=== PATIENT | male | born 1955 | race Two or more races ===

== ENCOUNTER 2021-05-09 16:59 | Inpatient (IN) | payer MEDICAID ==
[~2021-05-09] VITALS: Ht 172.7 cm; Wt 75.3 kg
[2021-05-09] MEDS ORDERED: HYDR-4077 GT (17:20)
[2021-05-09] MEDS ORDERED: AMIN30LI2 GT (17:20)
[2021-05-09] MEDS ORDERED: ACET-2154 GT (17:20)
[2021-05-09] MEDS ORDERED: CLON0.1T GT (17:20)
[2021-05-09] MEDS ORDERED: ATOR10TA GT (17:20)
[2021-05-09] MEDS ORDERED: HYDR-4075 GT (17:20)
[2021-05-09] MEDS ORDERED: GLYC2TAB2 GT (17:20)
[2021-05-09] MEDS ORDERED: DEXT38GE12 PO (17:20)
[2021-05-09] MEDS ORDERED: DIVA125T2 GT (17:20)
[2021-05-09] MEDS ORDERED: ACET-2605 GT (17:20)
[2021-05-09] MEDS ORDERED: INSU100I26 SQ (17:20)
[2021-05-09] MEDS ORDERED: SEVE800T8 GT (17:20)
[2021-05-09 17:39] LABS: CREATININE 2.3 mg/dL (0.6-1.3); HEMATOCRIT 31.5 % (36.7-47.1); MEAN CORPUSCULAR HEMOGLOBIN 27.7 uug (23.8-33.4); MEAN CORPUSCULAR VOLUME 85.2 fL (73.0-96.2); PLATELET COUNT (AUTO) 584 K/uL (152-348); POTASSIUM 4.4 mmol/L (3.5-5.1)
--- NOTE | 2021-05-09 17:39 | NUR ---
pt bib ambulance from [facility], due to out pt dialysis missed today. pt came on vent 12, 500, 40%, peep5. no sign of distress at this time.
--- NOTE | 2021-05-09 18:00 | NUR ---
pt co low abd pain. md notified.
[2021-05-09] MEDS ORDERED: LIDOCAINE 2% (UROJET) 10 ML JELLY MM ONE ×2 (18:29→18:45)
[2021-05-09 18:48] LABS: *BILIRUBIN,URIN NEGATIVE (NEGATIVE); *CLARITY,URINE TURBID (CLEAR); *COLOR,URINE YELLOW (YELLOW); *KETONES,URINE NEGATIVE (NEGATIVE); *UROBILINOGEN,URINE 0.2 E.U./dl (NORMAL); LEUKOCYTE ESTERASE ,URINE 3+ (NEGATIVE); NITRITE, URINE NEGATIVE (NEGATIVE); PH,URINE 5.5 (5.0-8.0); UGLUCOSE NEGATIVE (NEGATIVE)
[2021-05-09 18:59] LABS: *BLOOD, URINE TRACE (NEGATIVE)
[2021-05-09 19:00] LABS: BACTERIA,URINE MANY /HPF (NONE SEEN); SQUAMOUS EPITHELIAL CELL,UR NONE SEEN /HPF (NONE SEEN); WBC,URINE TNTC /HPF (0-3)
--- NOTE | 2021-05-09 19:07 | NUR ---
per day shift nurse Trinh Jimenez accepted to admit this pt to [facility].
--- NOTE | 2021-05-09 19:08 | NUR ---
pt has a trach to vent, per dayshift pt is a chronic vent and chronic hd pt. pt able to mouth words to communicate.
--- NOTE | 2021-05-09 19:27 | NUR ---
pt is having a midline placed.
--- NOTE | 2021-05-09 19:33 | NUR ---
call placed to Trinh Jimenez NP.
--- NOTE | 2021-05-09 19:45 | NUR ---
Trinh Jimenez COMMERCIAL LINES ASSISTANT called back informed her the pt will go to CCU as [facility] status.
--- NOTE | 2021-05-09 19:49 | NUR ---
Wagner VILLALOBOS complted midline to left upper arm.
[2021-05-09] MEDS ORDERED: ONDANSETRON 4 MG/2 ML VIAL IV PRN (20:00)
[2021-05-09] MEDS ORDERED: MAGNESIUM HYDROXIDE 30 ML LIQUID UDC PO PRN (20:00)
[2021-05-09] MEDS ORDERED: ACETAMINOPHEN 325 MG TABLET PO PRN (20:00)
[2021-05-09] MEDS ORDERED: REMEDY ESSENTIAL ZINC PASTE 113 GM TP PRN (20:00)
[2021-05-09] MEDS ORDERED: ACETAMINOPHEN ES 500 MG TABLET- SA PATIENTS-PAIN ONLY GT PRN (20:15)
[2021-05-09] MEDS ORDERED: hydrALAZINE HCL 10 MG TABLET GT PRN (20:15)
--- NOTE | 2021-05-09 20:32 | NUR ---
report given to Asiya in icu pt to go to room 2 in icu, under the care of [facility] status.
[2021-05-09] MEDS: ATORVASTATIN 10 MG TABLET GT SCH (21:00)
[2021-05-09 21:30] VITALS: BP 151/93
--- NOTE | 2021-05-09 21:30 | NUR ---
Received patient from ED via RT georgiana and MD at bedside. Pt. is awake, alert and oriented with no acute distress noted. Trach to vent, setting as follows: AC 12, TV 500, FiO2 40% and PEEP of 5. Oriented pt safely to his bed. SR in the monitor. Vas cath in the left upper chest wall in place. IV on the left upper arm, patent and intact. GTube is clamped and site is C/D/I. Bowel sounds active on all 4 quadrants. Herron is draining yellow cloudy urine with moderate amount of sediments. Skin menard, sacral is intact. However, lower back rash. Right foot and huynh skin abrasion. Safety initiated. Bed in low and locked position. Will continue to monitor.
--- NOTE | 2021-05-09 21:36 | NUR ---
PT TRANSPORTED TO ROOM ICU 2 UNDER [facility] STATUS, RT AND DR. CARDOZO TRANSPORTED PT WITH ALL BELONGINGS. GRISELDA MARTE AT BEDSIDE TO RECEIVE THE PT.
[2021-05-09 22:00] VITALS: BP 154/83
[2021-05-09] MEDS: SEVELAMER CARBONATE 800 MG POWD.PACK GT SCH (22:00)
[2021-05-09] MEDS ORDERED: LORAZEPAM 2 MG/1 ML VIAL IV ONE (22:00)
--- NOTE | 2021-05-09 22:00 | NUR ---
Pt is restless and anxious. Firer Bisque Kiln at bedside. RT at bedside. C/O unable to breath despite being on the vent. Suctioned pt. for secretions. Ativan 1 mg. given. Will continue to monitor.
[2021-05-09 22:30] VITALS: BP 145/73
--- NOTE | 2021-05-09 22:30 | NUR ---
Dr. Moralez at bedside to assess the pt. New orders given. Will continue to monitor.
[2021-05-09] MEDS: CEFTRIAXONE 1 G in IV DEXTROSE 5% 50 ML IV SCH (22:53)
[2021-05-09] MEDS: hydrALAZINE HCL 50 MG TABLET GT SCH (22:54)
[2021-05-09] MEDS: DIVALPROEX SPRINKLE 125 MG CAP.SPRINK PO SCH (22:54)
[2021-05-09] MEDS ORDERED: hydrALAZINE HCL 25 MG TABLET ONE (22:54)
[2021-05-09] MEDS ORDERED: ATORVASTATIN 40 MG TABLET ONE (22:55)
[2021-05-09 22:56] LABS: ABG BASE EXCESS -3.9 mmol/L; ABG HCO3 20.9 mmol/L; ABG PCO2 36.7 mmHg (35.0-45.0); ABG PH 7.373 (7.350-7.450); ABG PO2 128.3 mmHg (75.0-100.0); ABG SITE LEFT RADIAL; ABG TOTAL HEMOGLOBIN 10.7 G/dL (13.5-18.0); COHb 0.3 % (0.5-1.5); MetHb 0.8 % (0.0-1.5); O2Hb 97.6 % (94.0-97.0); VENT MODE VENT - A/C; VT, ABG 500 mL
[2021-05-09] MEDS ORDERED: CEFTRIAXONE /D5W 50ML IVPB **ER PYXIS IV ONE (22:56)
[2021-05-09 23:00] VITALS: BP 131/69
[2021-05-09] MEDS ORDERED: SEVELAMER CARBONATE 800 MG TABLET PO ONE (23:05)
[2021-05-09] MEDS ORDERED: APIXABAN 2.5 MG TABLET ONE (23:06)
[2021-05-10] VITALS (12 sets, daily range): BP systolic 98–148; BP diastolic 55–78
[2021-05-10] MEDS ORDERED: REMEDY ESSENTIAL ZINC PASTE 113 GM TOP PRN (03:45)
[2021-05-10 05:44] LABS: HEMATOCRIT 29.6 % (36.7-47.1); MEAN CORPUSCULAR HEMOGLOBIN 27.5 uug (23.8-33.4); MEAN CORPUSCULAR VOLUME 85.4 fL (73.0-96.2); PLATELET COUNT (AUTO) 494 K/uL (152-348)
[2021-05-10] MEDS: LORAZEPAM 2 MG/1 ML VIAL IV PRN ×3 (06:05→21:59)
--- NOTE | 2021-05-10 06:15 | NUR ---
Restless and agitated. Ativan given. Will continue to monitor.
[2021-05-10 06:32] LABS: CREATININE 2.3 mg/dL (0.6-1.3); MAGNESIUM 2.4 mg/dL (1.8-2.4); PHOSPHOROUS 4.5 mg/dL (2.5-4.9); POTASSIUM 3.8 mmol/L (3.5-5.1)
[2021-05-10] MEDS: SEVELAMER CARBONATE 800 MG POWD.PACK GT SCH ×2 (07:56→17:45)
--- NOTE | 2021-05-10 08:00 | NUR ---
Received pt in bed, Marshallese speaking, history of CVA with right sided weakness. Pt has abrasion on the right huynh and foot, and lower back rash. pt is a recent vent to trach x1 month. Portex 8 AC 12 TV 500 FiO2 35%, Peep 5. Pt is bedbound, with gtube in place. IV left upper arm midline SL and Left upper chest wall dialysis catheter. Waiting for Nephrology consult.
[2021-05-10] MEDS: CLONIDINE HCL 0.2 MG TABLET GT SCH ×3 (08:07→17:45)
[2021-05-10] MEDS: DIVALPROEX SPRINKLE 125 MG CAP.SPRINK PO SCH ×3 (08:07→17:45)
[2021-05-10] MEDS: hydrALAZINE HCL 50 MG TABLET GT SCH ×3 (08:07→22:14)
[2021-05-10] MEDS: GLYCOPYRROLATE 1 MG TABLET GT SCH ×3 (08:07→17:45)
[2021-05-10] MEDS: PROTEIN SUPPLEMENT (PROSTAT) 30 ML LIQUID GT SCH ×2 (08:09→17:46)
[2021-05-10 10:01] LABS: THYROID STIMULATING HORMONE 6.171 mIU/mL (0.358-3.740)
--- NOTE | 2021-05-10 11:00 | NUR ---
Seen by nephrology, dialysis nurse contacted-will continue with HD.
--- NOTE | 2021-05-10 17:08 | NUR ---
Consent obtained from sister, Senia Raymundo, for Hemodialysis. To be down later today 05/10/21.
--- NOTE | 2021-05-10 19:10 | NUR ---
received patient calm , arousable to name and light touch , vent setting of ac 12 tv 500 p 5 fio2 35 % , midline intact on tamica , kiana cath lsc , intact , duckworth draining , no fever noted , sr at 72
--- NOTE | 2021-05-10 19:10 | NUR ---
gt is clamped , flushed and aspirated , patent
--- NOTE | 2021-05-10 19:30 | NUR ---
dr meyers is here is to see patient
--- NOTE | 2021-05-10 20:00 | NUR ---
dialysis nurse is here to start dialysis
[2021-05-10] MEDS: NEPRO 1000 ML GT SCH (21:25)
[2021-05-10] MEDS: CEFTRIAXONE 1 G in IV DEXTROSE 5% 50 ML IV SCH (22:10)
[2021-05-10] MEDS: ATORVASTATIN 10 MG TABLET GT SCH (22:11)
--- NOTE | 2021-05-10 22:50 | NUR ---
dialysis is done 2liters out
[2021-05-11] VITALS (10 sets, daily range): BP systolic 107–152; BP diastolic 63–90
--- NOTE | 2021-05-11 00:41 | NUR ---
PATIENT ON CONT ALVARADO VENT , WITH PORTEX # [address], PT CAN SPEAK AT TIMES, RESTLESS AT TIMES, WITH DIALYSIS EARLIER , NO VENT CHANGES MADE, CHANGE HME , ALL VENT ALARMS GOOD, PT MORE RELAXED AT THIS TIME,, FIO2 @ 35%. Kevin VALDOVINOSP Addendum: 05/11/21 at 0043 by NUNO MENDOZA RT Amended: Links added.
[2021-05-11] MEDS: hydrALAZINE HCL 50 MG TABLET GT SCH ×3 (05:26→21:42)
[2021-05-11] MEDS: LEVOTHYROXINE SODIUM 25 MCG TABLET PO SCH (06:31)
--- NOTE | 2021-05-11 06:31 | NUR ---
patient is sleeping comfortably , arousable to name and touch , gt clamped as per order , nephro 60 ml x 22 hours , kiana cath , midline and duckworth intact , no fevr , no seizure noted , am care provided , no bowel movement
[2021-05-11] MEDS: SEVELAMER CARBONATE 800 MG POWD.PACK GT SCH ×2 (08:00→17:13)
--- NOTE | 2021-05-11 08:00 | NUR ---
Received report from Donte VILLALOBOS. Trach/ vent/ seizure precautions,noted left side upper> lower,G tube clamped, indwelling urinary catheter with 125 cc yellow/maru Special pressure reduction bed/mattress,HOB up SR x4 up [facility] bedside trach care, suctioned with scant dark.
[2021-05-11] MEDS: CLONIDINE HCL 0.2 MG TABLET GT SCH ×3 (09:50→17:15)
[2021-05-11] MEDS: GLYCOPYRROLATE 1 MG TABLET GT SCH ×3 (09:51→17:13)
[2021-05-11] MEDS: DIVALPROEX SPRINKLE 125 MG CAP.SPRINK PO SCH ×3 (09:51→17:14)
[2021-05-11] MEDS: PROTEIN SUPPLEMENT (PROSTAT) 30 ML LIQUID GT SCH ×2 (09:51→17:12)
[2021-05-11] MEDS ORDERED: EPOETIN ALFA 10,000 UNITS/ML VIAL SQ ONE (12:15)
--- NOTE | 2021-05-11 19:10 | NUR ---
received patient calm , sleeping , arousable to name and light touch , vent setting of ac 12 tv 500 p5 35 fio2 % , kiana lsc , midline tamica , duckworth intact , low grade fever , sr ,
--- NOTE | 2021-05-11 20:00 | NUR ---
leather products supervisor made aware of dialysis order
[2021-05-11] MEDS: ATORVASTATIN 10 MG TABLET GT SCH ×2 (20:25→21:41)
--- NOTE | 2021-05-11 21:27 | NUR ---
PATIENT ON CONT ALVARADO VENT WITH PORTEX # [address] AND SECURED, CURRENT VENT SETTINGS, A/C 12, 500ML, 35%, PEEP5, PT DOES ASSIST AT TIMES, GOOD COUGH EFFORT, PT IS QUIET AT TIMES, THEN WAKES, UP, SLIGHTLY AGITATED AT TIMES, SAYS HE CANT BREATH, MAYBE ANXIETY AT TIMES, CAN SPEAK THROUGH TRACH VERBALLY, WHEN HE NEEDS SOMETHING, SLIGHTLY BLOODY TINGE SECRETIONS, AT TIMES, NO VENT CHANGES MADE, ALL VENT ALARMS GOOD, . Kevin VALODVINOSP Addendum: 05/11/21 at 2131 by NUNO MENDOZA RT Amended: Links added.
[2021-05-11] MEDS: CEFTRIAXONE 1 G in IV DEXTROSE 5% 50 ML IV SCH (21:41)
[2021-05-11] MEDS: ACETAMINOPHEN 650 MG/20.3 ML LIQUID UDC GT PRN (21:48)
[2021-05-12] VITALS (8 sets, daily range): BP systolic 106–158; BP diastolic 57–71
[2021-05-12] MEDS: NEPRO 1000 ML GT SCH (00:43)
[2021-05-12 05:22] LABS: HEMATOCRIT 29.5 % (36.7-47.1); MEAN CORPUSCULAR HEMOGLOBIN 26.9 uug (23.8-33.4); MEAN CORPUSCULAR VOLUME 83.9 fL (73.0-96.2); PLATELET COUNT (AUTO) 531 K/uL (152-348)
[2021-05-12 05:33] LABS: CREATININE 2.6 mg/dL (0.6-1.3); POTASSIUM 3.4 mmol/L (3.5-5.1)
[2021-05-12] MEDS: hydrALAZINE HCL 50 MG TABLET GT SCH ×3 (06:00→21:15)
[2021-05-12] MEDS ORDERED: ALTEPLASE 2 MG VIAL XX ONE (06:15)
[2021-05-12] MEDS: MUPIROCIN 2% OINT 22 GM TUBE NS SCH ×2 (08:27→21:14)
[2021-05-12] MEDS: CLONIDINE HCL 0.2 MG TABLET GT SCH ×3 (08:27→16:54)
[2021-05-12] MEDS: GLYCOPYRROLATE 1 MG TABLET GT SCH ×3 (08:28→16:54)
[2021-05-12] MEDS: PROTEIN SUPPLEMENT (PROSTAT) 30 ML LIQUID GT SCH (08:28)
[2021-05-12] MEDS: LEVOTHYROXINE SODIUM 25 MCG TABLET PO SCH (08:28)
[2021-05-12] MEDS: SEVELAMER CARBONATE 800 MG POWD.PACK GT SCH ×2 (08:28→17:53)
[2021-05-12] MEDS: DIVALPROEX SPRINKLE 125 MG CAP.SPRINK PO SCH ×3 (08:29→16:54)
--- NOTE | 2021-05-12 08:30 | NUR ---
Dialysis finished at 0830 with 2L of output. Joselyn cath intact. Vital signs remained stable. Will continue to monitor. Addendum: 05/12/21 at 1734 by TOMER CANTU RN The patient has permcath not portacath. intact, dry.
--- NOTE | 2021-05-12 10:30 | NUR ---
Patient is transferred via hospital bed from CCU to 3rd floor as ordered. Assisted by RT and the education supervisor. Patient is on cont bolton vent with portex #8, trach in place and secured, current vent settings as follow: A/C 12, 500ML, 35%. Patient denies discomfort, suctioned as needed. Gtube intact, feeding continued. will continue to monitor.
--- NOTE | 2021-05-12 11:26 | NUR ---
WOUND CARE CONSULT: PT SEEN FOR FLAKY, PEELING RASH TO MID/LOWER BACK, PRESENT ON ADMISSION. SOME SCARRING NOTED TO SACRUM/BUTTOCKS. RECOMMENDATIONS MADE FOR SKIN PROTECTION AND CARE. DISCUSSED WITH NURSING STAFF. PT IS ON [facility]. IN AGREEMENT WITH PLAN OF CARE.
--- NOTE | 2021-05-12 15:57 | NUR ---
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 treatment with any beta lactum drug including carbapenem is not reliable. Patient requires contact isolation. Dr Abebe made aware, pharmacist to check medication. will continue to monitor.
[2021-05-12] MEDS: SULFAMETHOXAZOL/TRIMETHOPRI IV 10 ML in IV DEXTROSE 5% 250 ML IV SCH (17:53)
[2021-05-12] MEDS: CLOTRIMAZOLE 1% CREAM 30 GM TUBE TOP SCH (17:53)
--- NOTE | 2021-05-12 18:46 | NUR ---
The patient remained stable during the shift. no distress identified. suctioned as needed. turned and repositioned for perfusion. frequent visual checks done. oral hygiene done. all due meds given, all needs attended. Safety measures maintained. will endorse to the next shift for continuity of care.
--- NOTE | 2021-05-12 19:30 | NUR ---
Received patient in bed, awake, hob elevated, no sob no chest pain, tele monitor sinus rhythm, on vent no desaturation noted, on gtf tolerate well, no n/v noted, duckworth cath patent draining with yellow color urine in moderate amount, no complain of pain.cont to monitor.
[2021-05-13] VITALS (18 sets, daily range): BP systolic 97–142; BP diastolic 58–78
[2021-05-13 02:06] LABS: HEPATITIS B SURFACE AG Negative (Negative)
[2021-05-13] MEDS: SULFAMETHOXAZOL/TRIMETHOPRI IV 10 ML in IV DEXTROSE 5% 250 ML IV SCH ×2 (05:08→18:07)
[2021-05-13] MEDS: hydrALAZINE HCL 50 MG TABLET GT SCH ×3 (05:46→21:10)
[2021-05-13] MEDS: LEVOTHYROXINE SODIUM 25 MCG TABLET PO SCH (06:06)
--- NOTE | 2021-05-13 06:06 | NUR ---
Patient awake no sob no chest pain, hob elevated tele monitor sinus rhythm sinus carlos. Patient has no s/s of pain or discomfort, rendered total assist with adl's, duckworth cath patent draining with yellow color urine in moderate amount. left chest anthony cath dressing intact, left upper arm midline intact, on vent tolerate well, no desaturation noted, sat 100%. cont to monitor.
[2021-05-13 06:28] LABS: HEMATOCRIT 29.4 % (36.7-47.1); MEAN CORPUSCULAR HEMOGLOBIN 27.6 uug (23.8-33.4); MEAN CORPUSCULAR VOLUME 83.8 fL (73.0-96.2); PLATELET COUNT (AUTO) 431 K/uL (152-348)
[2021-05-13 06:53] LABS: CREATININE 2.6 mg/dL (0.6-1.3); MAGNESIUM 2.6 mg/dL (1.8-2.4); PHOSPHOROUS 3.2 mg/dL (2.5-4.9); POTASSIUM 3.1 mmol/L (3.5-5.1)
[2021-05-13] MEDS: NEPRO 1000 ML GT SCH (07:03)
[2021-05-13] MEDS: SEVELAMER CARBONATE 800 MG POWD.PACK GT SCH ×2 (07:58→17:27)
[2021-05-13] MEDS: GLYCOPYRROLATE 1 MG TABLET GT SCH ×3 (08:02→16:48)
[2021-05-13] MEDS: MUPIROCIN 2% OINT 22 GM TUBE NS SCH ×2 (08:03→20:25)
[2021-05-13] MEDS: CLOTRIMAZOLE 1% CREAM 30 GM TUBE TOP SCH ×2 (08:03→16:49)
[2021-05-13] MEDS: CLONIDINE HCL 0.2 MG TABLET GT SCH ×3 (08:14→16:47)
[2021-05-13] MEDS: DIVALPROEX SPRINKLE 125 MG CAP.SPRINK PO SCH ×3 (08:14→16:49)
--- NOTE | 2021-05-13 09:40 | NUR ---
Pt.was seen by PAUL FIGUEREDO MD
[2021-05-13] MEDS ORDERED: POTASSIUM CHLORIDE 20 MEQ POWDER PACKET GT ONE (13:00)
--- NOTE | 2021-05-13 19:30 | NUR ---
Received patient with trache to vent settings as follows: AC=12, FIO2=35%, LW=533mj and PEEP=5 cm. O2 saturations good. NAD noted. Able to communicate needs. surveillance system monitor: SR rate 60's. Assessment completed and documented.
--- NOTE | 2021-05-13 20:00 | NUR ---
Turned and repositioned. Skin care provided.
[2021-05-13] MEDS: ATORVASTATIN 10 MG TABLET GT SCH (20:24)
[2021-05-13] MEDS: ACETAMINOPHEN 650 MG/20.3 ML LIQUID UDC GT PRN (21:09)
[2021-05-14] VITALS (11 sets, daily range): BP systolic 96–138; BP diastolic 60–78
[2021-05-14 04:57] LABS: HEMATOCRIT 28.5 % (36.7-47.1); MEAN CORPUSCULAR HEMOGLOBIN 27.5 uug (23.8-33.4); MEAN CORPUSCULAR VOLUME 84.3 fL (73.0-96.2); PLATELET COUNT (AUTO) 404 K/uL (152-348)
--- NOTE | 2021-05-14 05:00 | NUR ---
HD started by Jett VILLALOBOS.
[2021-05-14 05:01] LABS: CREATININE 3.4 mg/dL (0.6-1.3); POTASSIUM 3.6 mmol/L (3.5-5.1)
--- NOTE | 2021-05-14 06:30 | NUR ---
[id number] meds to delay administration as per Jett institutional custodian. Tolerating HD fairly well. VS stable.
[2021-05-14] MEDS: LEVOTHYROXINE SODIUM 25 MCG TABLET PO SCH (07:56)
[2021-05-14] MEDS: SEVELAMER CARBONATE 800 MG POWD.PACK GT SCH ×2 (07:56→17:01)
[2021-05-14] MEDS: GLYCOPYRROLATE 1 MG TABLET GT SCH ×3 (07:57→17:02)
[2021-05-14] MEDS: DIVALPROEX SPRINKLE 125 MG CAP.SPRINK PO SCH ×3 (07:59→17:01)
[2021-05-14] MEDS: CLOTRIMAZOLE 1% CREAM 30 GM TUBE TOP SCH ×2 (08:00→17:02)
[2021-05-14] MEDS: hydrALAZINE HCL 50 MG TABLET GT SCH ×2 (08:00→15:00)
[2021-05-14] MEDS: MUPIROCIN 2% OINT 22 GM TUBE NS SCH (08:01)
[2021-05-14] MEDS: SULFAMETHOXAZOL/TRIMETHOPRI IV 10 ML in IV DEXTROSE 5% 250 ML IV SCH (08:09)
[2021-05-14] MEDS: CLONIDINE HCL 0.2 MG TABLET GT SCH ×3 (09:00→17:02)
--- NOTE | 2021-05-14 09:00 | NUR ---
held clonidine during dialysis. Will monitor blood pressure. 2l out post dialysis
[2021-05-14] MEDS ORDERED: SULFAMETH/TRIMETH 800/160 MG TABLET PO SCH (12:00)
[2021-05-14] MEDS ORDERED: CLOT30CR24 TOP (12:56)
[2021-05-14] MEDS ORDERED: Nepro GT (12:56)
[2021-05-14] MEDS ORDERED: LEVO25TA9 PO (12:56)
[2021-05-14] MEDS ORDERED: Sulfameth/Trimeth 800/160 Mg PO (12:56)
[2021-05-14] MEDS ORDERED: MUPI22OI2 NS (12:56)
--- NOTE | 2021-05-14 14:43 | NUR ---
Spoke to Sherie from [facility] to give report. left phone number for picker operator time and transfer. Discharge paperwork printed. Informed patient of transfer.
--- NOTE | 2021-05-14 15:00 | NUR ---
patient given bed bath and DC duckworth.
--- NOTE | 2021-05-14 18:16 | NUR ---
ambulance in the unit and report was given to nurse.
== END 2021-05-14 18:34 | DRG 720 ==
LOC: ER 17:04 → CCU 20:46 → TELE-TD3 05-12 10:36 → CCU 05-13 06:41
PROVIDERS: ADMIT Internal Medicine; ATTEND Nurse Practitioner Acute Care
PROC: 05HY33Z Insertion of Infusion Device into Upper Vein, Percutaneous Approach (ICD-10-PCS; 2021-05-09)
PROC: 5A1955Z Respiratory Ventilation, Greater than 96 Consecutive Hours (ICD-10-PCS; 2021-05-09)
PROC: 5A1D70Z Performance of Urinary Filtration, Intermittent, Less than 6 Hours Per Day (ICD-10-PCS; principal; 2021-05-10)
DX: A41.9 Sepsis, unspecified organism (principal); G92.8 Other toxic encephalopathy; J96.10 Chronic respiratory failure, unspecified whether with hypoxia or hypercapnia; J18.9 Pneumonia, unspecified organism; D68.69 Other thrombophilia; D63.8 Anemia in other chronic diseases classified elsewhere; E83.9 Disorder of mineral metabolism, unspecified; E87.1 Hypo-osmolality and hyponatremia; N18.6 End stage renal disease; Z99.11 Dependence on respirator [ventilator] status; E11.22 Type 2 diabetes mellitus with diabetic chronic kidney disease; Z99.2 Dependence on renal dialysis; Z79.4 Long term (current) use of insulin; Z91.15 Patient's noncompliance with renal dialysis; N39.0 Urinary tract infection, site not specified; B96.1 Klebsiella pneumoniae [K. pneumoniae] as the cause of diseases classified elsewhere; Z16.24 Resistance to multiple antibiotics; D75.839 Thrombocytosis, unspecified; E78.5 Hyperlipidemia, unspecified; E87.5 Hyperkalemia; I25.2 Old myocardial infarction; I69.354 Hemiplegia and hemiparesis following cerebral infarction affecting left non-dominant side; R13.10 Dysphagia, unspecified; Z20.822 Contact with and (suspected) exposure to COVID-19; Z93.0 Tracheostomy status; Z93.1 Gastrostomy status; Z74.09 Other reduced mobility; Z22.322 Carrier or suspected carrier of Methicillin resistant Staphylococcus aureus; I13.11 Hypertensive heart and chronic kidney disease without heart failure, with stage 5 chronic kidney disease, or end stage renal disease; G40.909 Epilepsy, unspecified, not intractable, without status epilepticus; E11.51 Type 2 diabetes mellitus with diabetic peripheral angiopathy without gangrene
CPT/HCPCS: 36415; 36600; 71045; 83550; 83735; 84100; 84443; 85025; 86706; 87070; 87077; 87086; 87340; 90937; 94002; 94003; 94760; 99082-TC; A4663; G0378; J0696; J0885; J2060; J2997; J3490; J7030; J7050; J7060